=== PATIENT | female | born 1965 | race Caucasian/White ===

== ENCOUNTER → 2024-09-28 07:11 | Outpatient (REF) | payer OTHER, SELFPAY | LOC: HWRAD 07:11 | PROVIDERS: ATTENDING PHYSICIAN Family Medicine | DX: R06.09 Other forms of dyspnea (principal) | CPT/HCPCS: 71046 ==

== ENCOUNTER → 2024-10-23 15:24 | Outpatient (REF) | payer OTHER, SELFPAY | LOC: RAD 15:24 | PROVIDERS: ATTENDING PHYSICIAN Family Medicine | DX: R91.8 Other nonspecific abnormal finding of lung field (principal) | CPT/HCPCS: 71260; Q9967 ==